=== PATIENT | male | born 1990 | race Caucasian/White ===

== ENCOUNTER 2017-11-09 12:47 | Emergency (ER) | payer SELFPAY ==
[~2017-11-09] VITALS: Ht 170.2 cm; Wt 68.5 kg
[2017-11-09 13:08] VITALS: Ht 170.2 cm; Wt 68.5 kg
[2017-11-09 15:09] VITALS: BP 129/80
== END 2017-11-09 15:09 | disposition home or self-care (01) ==
LOC: ED 12:47
DX: S61.512A Laceration without foreign body of left wrist, initial encounter (principal); E11.9 Type 2 diabetes mellitus without complications; X58.XXXA Exposure to other specified factors, initial encounter; Y93.89 Activity, other specified; Y92.098 Other place in other non-institutional residence as the place of occurrence of the external cause; Y99.8 Other external cause status
CPT/HCPCS: A4570; J2001